=== PATIENT | female | born 1975 | race Caucasian/White ===

== ENCOUNTER 2020-10-02 18:25 | Emergency (ER) | payer OTHER ==
[~2020-10-02 18:25] MED LIST: MACROBID 100 M100 MG PO
[2020-10-02] MEDS ORDERED: BACTRIM DS TAB1 EACH PO (19:53)
[2020-10-02] MEDS ORDERED: CENTANY30 GM TP (19:53)
[2020-10-02] MEDS ORDERED: IBU800 MG PO (19:53)
== END 2020-10-02 20:07 | disposition home or self-care (01) ==
LOC: ER1 18:25
DX: L97.811 Non-pressure chronic ulcer of other part of right lower leg limited to breakdown of skin (principal); L03.115 Cellulitis of right lower limb; E11.9 Type 2 diabetes mellitus without complications; Z86.19 Personal history of other infectious and parasitic diseases; Z88.8 Allergy status to other drugs, medicaments and biological substances
CPT/HCPCS: 99283

== ENCOUNTER 2021-01-08 12:53 | Emergency (ER) | payer OTHER ==
[~2021-01-08 12:53] MED LIST changes: +BACTRIM DS TAB1 EACH PO; +CENTANY30 GM TP; +IBU800 MG PO
[2021-01-08 14:30] LABS: HEMOGLOBIN 11.4 gm/dl (12.3-15.3); RED BLOOD COUNT 4.53 M/UL (4.00-5.10); WHITE BLOOD COUNT 6.4 K/UL (4.5-11.0)
[2021-01-08 14:58] LABS: BUN/CREATININE RATIO 23 (0-10)
[2021-01-08] MEDS ORDERED: BACTRIM DS TAB1 EACH PO (16:55)
== END 2021-01-08 17:20 | disposition home or self-care (01) ==
LOC: ER1 12:53
PROVIDERS: Physician Assistant
DX: R07.9 Chest pain, unspecified (principal); F15.10 Other stimulant abuse, uncomplicated; R82.81 Pyuria; Z86.19 Personal history of other infectious and parasitic diseases; Z88.8 Allergy status to other drugs, medicaments and biological substances; Z88.0 Allergy status to penicillin; Z90.89 Acquired absence of other organs; Z79.899 Other long term (current) drug therapy
CPT/HCPCS: 71045; 80053; 80307; 81001; 82550; 82553; 83735; 83874; 84484; 84703; 85025; 85379; 87077; 87086; 87186; 93005; 99285

== ENCOUNTER 2021-05-02 02:35 | Emergency (ER) | payer OTHER ==
[2021-05-02 03:40] LABS: RED BLOOD COUNT 4.78 M/UL (4.00-5.10); WHITE BLOOD COUNT 5.1 K/UL (4.5-11.0)
[2021-05-02 04:06] LABS: BUN/CREATININE RATIO 12 (0-10)
[2021-05-02] MEDS ORDERED: DOXYCYCLINE MO100 MG PO (05:35)
[2021-05-02] MEDS ORDERED: DECADRON6 MG PO (05:35)
[2021-05-02] MEDS ORDERED: VENTOLIN HFA 66.7 GM INH (05:35)
== END 2021-05-02 08:00 | disposition home or self-care (01) ==
LOC: ER1 02:35
PROVIDERS: Physician Assistant
DX: U07.1 COVID-19 (principal); E87.1 Hypo-osmolality and hyponatremia; E78.5 Hyperlipidemia, unspecified; E11.9 Type 2 diabetes mellitus without complications; Z86.19 Personal history of other infectious and parasitic diseases; I51.9 Heart disease, unspecified; Z88.0 Allergy status to penicillin; Z88.8 Allergy status to other drugs, medicaments and biological substances; Z90.89 Acquired absence of other organs
CPT/HCPCS: 71045; 80053; 82550; 82553; 83874; 84484; 85025; 93005; 99284; U0002

== ENCOUNTER 2021-05-09 01:48 | Emergency (ER) | payer OTHER ==
[~2021-05-09 01:48] MED LIST changes: +DECADRON6 MG PO; +DOXYCYCLINE MO100 MG PO; +VENTOLIN HFA 66.7 GM INH
== END 2021-05-09 04:00 | disposition left against medical advice (07) ==
LOC: ER1 01:48
DX: Z53.21 Procedure and treatment not carried out due to patient leaving prior to being seen by health care provider (principal)

== ENCOUNTER 2021-05-10 22:25 | Emergency (ER) | payer OTHER ==
[2021-05-11] MEDS ORDERED: BACTROBAN OINT22 GM EXT (01:15)
[2021-05-11] MEDS ORDERED: LEVOFLOXACIN500 MG PO (01:15)
== END 2021-05-11 01:40 | disposition home or self-care (01) ==
LOC: ER1 22:25
DX: S91.341A Puncture wound with foreign body, right foot, initial encounter (principal); U07.1 COVID-19; E11.9 Type 2 diabetes mellitus without complications; I10 Essential (primary) hypertension; K21.9 Gastro-esophageal reflux disease without esophagitis; Z86.19 Personal history of other infectious and parasitic diseases; Z90.89 Acquired absence of other organs; Z23 Encounter for immunization; W25.XXXA Contact with sharp glass, initial encounter
CPT/HCPCS: 73630; 90471; 90715; 99283

== ENCOUNTER 2021-05-23 04:41 | Emergency (ER) | payer OTHER ==
[~2021-05-23 04:41] MED LIST changes: +BACTROBAN OINT22 GM EXT; +LEVOFLOXACIN500 MG PO
[2021-05-23 06:01] LABS: HEMOGLOBIN 12.4 gm/dl (12.3-15.3); RED BLOOD COUNT 5.16 M/UL (4.00-5.10); WHITE BLOOD COUNT 7.7 K/UL (4.5-11.0)
[2021-05-23 06:23] LABS: BUN/CREATININE RATIO 19 (0-10)
[2021-05-23] MEDS ORDERED: CEPHALEXIN500 MG PO (07:29)
[2021-05-23] MEDS ORDERED: BACTRIM DS TAB1 EACH PO (07:29)
== END 2021-05-23 08:00 | disposition home or self-care (01) ==
LOC: ER1 04:41
PROVIDERS: Emergency Medicine
DX: L02.512 Cutaneous abscess of left hand (principal); L03.114 Cellulitis of left upper limb; Z88.0 Allergy status to penicillin
CPT/HCPCS: 26010; 73090; 73130; 80053; 83605; 85025; 85652; 86140; 96374; 96375; 99283; J0696; J1885

== ENCOUNTER 2021-12-22 23:36 | Emergency (ER) | payer OTHER ==
[~2021-12-22 23:36] MED LIST changes: +CEPHALEXIN500 MG PO
== END 2021-12-22 23:50 | disposition left against medical advice (07) ==
LOC: ER1 23:36
DX: Z53.21 Procedure and treatment not carried out due to patient leaving prior to being seen by health care provider (principal)

== ENCOUNTER 2022-01-19 13:34 | Observation (INO) | payer OTHER ==
[~2022-01-19] VITALS: Ht 162.6 cm; Wt 81.6 kg
[2022-01-19 15:00] LABS: HEMOGLOBIN 13.1 gm/dl (12.3-15.3); RED BLOOD COUNT 5.14 M/UL (4.00-5.10); WHITE BLOOD COUNT 8.4 K/UL (4.5-11.0)
[2022-01-19 15:27] LABS: BUN/CREATININE RATIO 23 (0-10)
[2022-01-19] MEDS ORDERED: BUPRENORPHIN-N1 EACH SL (16:56)
[2022-01-19] MEDS ORDERED: NITROGLYCERIN0.4 MG SL (16:57)
[2022-01-19] MEDS ORDERED: NALOXONE HCL4 MG INH (16:57)
[2022-01-20 05:01] LABS: HEMOGLOBIN 12.7 gm/dl (12.3-15.3); RED BLOOD COUNT 4.93 M/UL (4.00-5.10); WHITE BLOOD COUNT 6.8 K/UL (4.5-11.0)
[2022-01-20 05:20] LABS: BUN/CREATININE RATIO 18 (0-10)
[2022-01-21] MEDS ORDERED: ASPIRIN EC81 MG PO (11:27)
== END 2022-01-21 13:05 | disposition home or self-care (01) ==
LOC: ER1 13:34 → CDU 16:26 → MED SURG 4 01-20 07:49
PROVIDERS: Emergency Medicine; ADMIT Internal Medicine
DX: R07.89 Other chest pain (principal); F15.10 Other stimulant abuse, uncomplicated; E87.6 Hypokalemia; I10 Essential (primary) hypertension; E78.5 Hyperlipidemia, unspecified; Z91.19 Patient's noncompliance with other medical treatment and regimen; Z88.0 Allergy status to penicillin; Z79.899 Other long term (current) drug therapy; Z20.822 Contact with and (suspected) exposure to COVID-19
CPT/HCPCS: ECHO; 71045; 80048; 80053; 82550; 82553; 83036; 83540; 83550; 83735; 83880; 84100; 84132; 84484; 85025; 85027; 93005; 93306; 96372; 99285; G0378; J1650; J2270; Q9967; U0002

== ENCOUNTER 2022-03-02 16:15 | Emergency (ER) | payer OTHER ==
[~2022-03-02 16:15] MED LIST changes: +ASPIRIN EC81 MG PO; +BUPRENORPHIN-N1 EACH SL; +NALOXONE HCL4 MG INH; +NITROGLYCERIN0.4 MG SL
[2022-03-02 16:56] LABS: HEMOGLOBIN 12.9 gm/dl (12.3-15.3); RED BLOOD COUNT 5.13 M/UL (4.00-5.10)
[2022-03-02 17:20] LABS: BUN/CREATININE RATIO 17 (0-10)
== END 2022-03-02 18:30 | disposition short-term general hospital (02) ==
LOC: ER1 16:15
PROVIDERS: Emergency Medicine
DX: I63.9 Cerebral infarction, unspecified (principal); Z86.59 Personal history of other mental and behavioral disorders; E78.5 Hyperlipidemia, unspecified; I10 Essential (primary) hypertension; E11.9 Type 2 diabetes mellitus without complications
CPT/HCPCS: 70450; 71045; 80053; 82550; 82553; 84484; 84702; 85025; 85610; 85730; 93005; 99285; J2997

== ENCOUNTER 2022-03-27 15:29 | Emergency (ER) | payer OTHER | END 2022-03-27 18:40 | disposition left against medical advice (07) | LOC: ER1 15:29 | DX: Z53.21 Procedure and treatment not carried out due to patient leaving prior to being seen by health care provider (principal) ==

== ENCOUNTER 2022-03-27 20:25 | Emergency (ER) | payer OTHER | END 2022-03-28 01:30 | disposition left against medical advice (07) | LOC: ER1 20:25 | DX: Z53.21 Procedure and treatment not carried out due to patient leaving prior to being seen by health care provider (principal) ==

== ENCOUNTER → 2022-04-23 | Outpatient (CLI) | payer OTHER ==
[2022-04-23 14:11] LABS: HEMOGLOBIN 12.6 gm/dl (12.3-15.3); RED BLOOD COUNT 5.05 M/UL (4.00-5.10); WHITE BLOOD COUNT 8.5 K/UL (4.5-11.0)
[2022-04-23 14:53] LABS: BUN/CREATININE RATIO 24 (0-10)
[2022-04-24 09:14] LABS: HBSAG SCREEN Negative (Negative); HEP B CORE AB, IGM Negative (Negative); HEP B CORE AB, TOT Negative (Negative)
[2022-04-24 10:14] LABS: IMMUNOGLOBULIN G, QN, SERUM 1685 mg/dL (586-1602)
[2022-04-24 14:11] LABS: T-TRANSGLUTAMINASE (TTG) IGA <2 U/mL (0-3)
[2022-04-25 07:10] LABS: HEP A AB, IGM Negative (Negative)
[2022-04-25 12:13] LABS: HCV LOG10 6.029 (.); HEPATITIS C QUANTITATION 1070000 IU/mL (.)
== END ==
LOC: LAB 12:53
PROVIDERS: Nurse Practitioner Family
DX: R10.13 Epigastric pain (principal); B19.20 Unspecified viral hepatitis C without hepatic coma; R10.12 Left upper quadrant pain; R11.0 Nausea; R13.10 Dysphagia, unspecified; K92.1 Melena; F19.90 Other psychoactive substance use, unspecified, uncomplicated; Z86.010 Personal history of colon polyps
CPT/HCPCS: 36415; 80053; 80307; 82728; 82746; 82784; 83516; 83540; 83550; 84443; 85027; 85610; 86317; 86704; 86705; 86708; 86709; 87340; 87522; 87902

== ENCOUNTER 2022-04-24 15:21 | Emergency (ER) | payer OTHER ==
[2022-04-24 17:05] LABS: BUN/CREATININE RATIO 25 (0-10)
[2022-04-24 17:36] LABS: HEMOGLOBIN 11.5 gm/dl (12.3-15.3); RED BLOOD COUNT 4.62 M/UL (4.00-5.10); WHITE BLOOD COUNT 7.3 K/UL (4.5-11.0)
== END 2022-04-24 19:26 | disposition home or self-care (01) ==
LOC: ER1 15:21
PROVIDERS: Student in an Organized Health Care Education/Training Program
DX: R51.9 Headache, unspecified (principal); Z86.73 Personal history of transient ischemic attack (TIA), and cerebral infarction without residual deficits; Z88.0 Allergy status to penicillin
CPT/HCPCS: 70450; 80053; 85025; 93005; 96365; 99284; J2765

== ENCOUNTER → 2022-05-13 | Outpatient (CLI) | payer OTHER | LOC: LAB 10:37 | PROVIDERS: Nurse Practitioner Family | DX: F19.90 Other psychoactive substance use, unspecified, uncomplicated (principal); B19.20 Unspecified viral hepatitis C without hepatic coma; R10.12 Left upper quadrant pain | CPT/HCPCS: 36415; 80307; 82150; 83690; 84703 ==